=== PATIENT | female | born 1945 | race Caucasian/White ===

== ENCOUNTER 2017-05-02 12:08 | Day surgery (SDC) | payer MEDICARE, BC ==
[~2017-05-02] VITALS: Ht 157.5 cm; Wt 98.4 kg
[2017-05-02] VITALS (8 sets, daily range): BP systolic 121–168; BP diastolic 57–75; PULSE 56–69; RESP 16–18; TEMP 97.5–98.5; O2SAT 95–99
[~2017-05-02 12:08] MED LIST: DEXAMETHASONE SOD PHOS 4 MG/ML VIAL IV ONE; GLYCOPYRROLATE 1 MG/5 ML SYRINGE IV PUSH ONE; LIDOCAINE HCL 1% PF 5 ML SYRINGE OTHER ONE; NEOSTIGMINE 5 MG/5 ML SYRINGE IV PUSH ONE; ONDANSETRON HCL 4 MG/2 ML VIAL IV ONE; PROPOFOL 200 MG/20 ML AMP IV ONE; ROCURONIUM INJ 50 MG/5 ML SYRINGE IV PUSH ONE; ePHEDrine/NS 25 MG/5 ML SYRINGE IV ONE; hydrALAZINE HCL 20 MG/ML VIAL IV ONE
[2017-05-02] MEDS ORDERED: LORazepam 1 MG TAB SL SCH (12:15)
[2017-05-02] MEDS ORDERED: LACTATED RINGER'S 1000 ML IV PRN (12:15)
[2017-05-02] MEDS ORDERED: SODIUM CHLORID 0.9% 500 ML INJ 500 ML IV SCH (12:15)
[2017-05-02] MEDS ORDERED: POVIDONE IODINE 5% (ANTISEPSIS KIT) 4 APPLICATIONS EACH NARE PRN (12:15)
[2017-05-02] MEDS ORDERED: METOPROLOL TARTRATE 25 MG TAB PO PRN (12:15)
[2017-05-02] MEDS ORDERED: SODIUM CHLORID 0.9% 500 ML IV PRN (12:15)
[2017-05-02] MEDS ORDERED: CHLORHEXIDINE GLUCONATE 2 % 1 PACK (2 CLOTHS) TOPICAL PRN (12:15)
[2017-05-02 13:01] LABS: AUTOMATED NEUTROPHIL # 4.7 TH/MM3 (1.8-7.7); BASOPHIL # 0.1 TH/MM3 (0-0.2); BASOPHIL % 0.9 % (0.0-2.0); EOSINOPHIL # 0.2 TH/MM3 (0-0.4); EOSINOPHIL % 2.7 % (0.0-4.0); HEMATOCRIT 43.5 % (35.0-46.0); HEMOGLOBIN 14.7 GM/DL (11.6-15.3); LYMPH % 30.9 % (9.0-44.0); LYMPHOCYTE # 2.5 TH/MM3 (1.0-4.8); MEAN CELL VOLUME 95.7 FL (80.0-100.0); MEAN CORPUSCULAR HEMOGLOBIN 32.3 PG (27.0-34.0); MEAN CORPUSCULAR HGB CONC 33.7 % (32.0-36.0); MEAN PLATELET VOLUME 7.5 FL (7.0-11.0); MONO % 7.9 % (0.0-8.0); MONOCYTE # 0.6 TH/MM3 (0-0.9); NEUT % 57.6 % (16.0-70.0); PLATELET COUNT 239 TH/MM3 (150-450); RED BLOOD COUNT 4.55 MIL/MM3 (4.00-5.30); WHITE BLOOD COUNT 8.2 TH/MM3 (4.0-11.0)
[2017-05-02] MEDS ORDERED: SIMV40TA PO (13:03)
[2017-05-02] MEDS ORDERED: CILO100T PO (13:03)
[2017-05-02] MEDS ORDERED: METO50TA PO (13:03)
[2017-05-02] MEDS ORDERED: CHOL10008 PO (13:03)
[2017-05-02] MEDS ORDERED: ALLO300T2 PO (13:03)
[2017-05-02] MEDS ORDERED: CANA100T PO (13:03)
[2017-05-02] MEDS ORDERED: TERA5CAP3 PO (13:03)
[2017-05-02] MEDS ORDERED: GLYB5TAB3 PO (13:03)
[2017-05-02] MEDS ORDERED: VITA100T65 PO (13:03)
[2017-05-02] MEDS ORDERED: APIX5TAB PO (13:03)
[2017-05-02] MEDS ORDERED: AMLO10TA2 PO (13:03)
[2017-05-02] MEDS ORDERED: SITA1TAB2 PO (13:03)
[2017-05-02] MEDS ORDERED: NEXI40CA PO (13:03)
[2017-05-02] MEDS ORDERED: OMEGCAP PO (13:03)
[2017-05-02] MEDS ORDERED: VITA250T3 PO (13:03)
[2017-05-02 13:11] LABS: PROTHROMBIN TIME - PATIENT 10.2 SEC (9.8-11.6)
[2017-05-02 13:17] LABS: BICARBONATE 22.1 MEQ/L (21.0-32.0); CALCIUM 9.1 MG/DL (8.5-10.1); CREATININE 0.74 MG/DL (0.50-1.00)
[2017-05-02] MEDS ORDERED: HEPARIN-NS/PF INJ 1,000 ML ONE (13:19)
[2017-05-02] MEDS ORDERED: ceFAZolin INJ 1,000 MG VIAL ONE (13:37)
[2017-05-02] MEDS ORDERED: HEPARIN-D5W 25,000 U/250 ML 250 ML ONE (13:38)
[2017-05-02] MEDS ORDERED: ISOPROTERENOL HCL 1 MG/5 ML AMP ONE (13:38)
[2017-05-02] MEDS ORDERED: HEPARIN SODIUM - IV 10,000 UNITS/10 ML VIAL ONE (13:39)
[2017-05-02] MEDS ORDERED: PROTAMINE SULFATE 50 MG/5 ML VIAL ONE (13:39)
[2017-05-02] MEDS ORDERED: ATROPINE SULFATE 1 MG/ML VIAL IV PUSH PRN (16:00)
[2017-05-02] MEDS ORDERED: BACITRACIN OINT 0.9 GM PKT TOP ONE (16:00)
[2017-05-02] MEDS ORDERED: ONDANSETRON HCL 4 MG/2 ML VIAL IV PUSH PRN (16:00)
[2017-05-02] MEDS ORDERED: LORazepam 2 MG/ML VIAL IV PUSH PRN (16:00)
[2017-05-02] MEDS ORDERED: LIDOCAINE HCL 1% 20 ML VIAL INFIL PRN (16:00)
[2017-05-02] MEDS ORDERED: METOCLOPRAMIDE HCL 10 MG/2 ML VIAL IV PUSH PRN (16:00)
[2017-05-02] MEDS ORDERED: oxyCODONE/ACETAMINOPHEN 5 MG/325 MG TAB PO PRN ×2 (16:00)
[2017-05-02] MEDS ORDERED: SODIUM CHLOR 0.9% 250 ML INJ 250 ML IV PRN (16:00)
--- NOTE | 2017-05-02 16:04 | CATHPROC ---
[employer] HIS Report Study Information Study Number Admission Scheduled Start Study Start [id number] May 02 2017 12:08PM 05/02/2017 May 02 2017 1:21PM [facility] Electrophysiology Study Admit Source Facility Department Other [facility] Physician and Clinical Staff Initial Keiko Rodriguez Director [facility] Facundo Shields,RT(R) Director Of [facility] Cait Kim,RT(R) TECH2 Other Anesthesia, CIO Recorder Denise Calvo,KRISTEN Recorder Carla Ledezma,KRISTEN Scrub Margie Becerra,MOTOR INSPECTION MECHANIC TECH2 Procedures Performed Procedure Location (Site) Vessel Name Ablation Procedure ICE CATHETER INSERT RA Atruim RF Ablation LT. ATRIUM LT. ATRIUM Equipment Time Insole Presser Description Size Mfg Part Number Used/Scraped NEEDLE, TRANSSEPTAL NRG 98 [id number] 13:33 [employer] Carmudi Used C1 *[id number] [employer]/ EP [id number] 13:33 KIT, TRANSDUCER / AFIB Used PACER *[id number] CATHETER, TACTICATH ABLAT BUNDLE 13:33 BUNDLE-[employer] DANY Used 65 BUNDLE *[id number]- BUNDLE [id number] CATHETER, FR7 OPTIMA SPIRAL 13:33 BUNDLE-[facility] FR7 *[id number]- Used BUNDLE BUNDLE [id number] 13:33 BUNDLE-[employer] DANY CATHETER, JSN, QUAD BUNDLE FR 5 *[id number]- Used BUNDLE [id number] 13:33 BUNDLE-[employer] DANY CATHETER, JSN, QUAD BUNDLE FR 5 *[id number]- Used BUNDLE [id number] SET, COOL POINT TUBING 13:33 BUNDLE-[employer]. DANY *[id number]- Used BUNDLE BUNDLE SHEATH, FR8.5 STEERABLE SM 13:33 BUNDLE-[employer]. DANY 71CM [id number] Used 71CM BUNDLE COVER, TRANSDUCER CABLE 612-113 13:33 [employer] Used ACUNAV *[id number] 13:33 CORDIS/PACER SHEATH, FR10 CAROLYNN 11CM FR 10 Used *[id number] 13:33 CORDIS/PACER SHEATH, FR9 CAROLYNN 11CM FR 9 [id number] Used [id number] 13:33 [employer] PACK, CCL CUSTOM * Used *[id number] 13:33 MEDLINE PACER FERNANDO, LIMB * 6790 *[id number] Used [id number] 13:33 [place] [facility] SHEATH, FR4.5 PRELUDE 11CM FR 4.5 Used [id number] 13:33 NAMIC TUBING, HIGH PRESSURE 48" 48" Used *[id number] 13:33 NAMIC TUBING, HIGH PRESSURE 48" 48" Used *[id number] 13:33 [place] [employer] BLANKET,WARM AIR CCL * Used *[id number] CZ4489 13:33 [facility] MEDICAL ELECTRODE KIT, RUFINO X SURFACE * Used *[id number] 097800 13:33 [facility] MEDICAL SHEATH, EPS, FR6 FAST CATH FR 6 Used *[id number] 13:33 [facility] MEDICAL SHEATH, EPS, FR7 FAST CATH FR 7 [id number] Used [id number] 13:33 [facility] MEDICAL SHEATH, EPS, FR8 FAST CATH FR 8 Used *[id number] CATHETER, ACUNAV FR10 ICE [id number] 14:35 CRYSTAL FR 10 Used (CRYSTAL) *[id number] [facility] PAD, ELECTROSURGICAL 13:33 * [id number] *[id number] Used SURGICAL GROUNDING (BLUE) History: Allergies Allergy Reaction sulfamethazine trimethoprim lansoprazole levofloxacin celecoxib dexlansoprazole aspirin History: Risk Factors Hypertension Yes Prior PCI Yes Diabetes Yes Labs Hgb (g/dl) Hct (%) RBC (MIL/MM3) WBC (l/cumm) Platelets (thousands) 11.60-17.00 35.00-51.00 4.00-5.90 4.00-11.00 150.00-450.00 14.7 43.5 4.5 8.2 239 Glucose (mg/dl) BUN (mg/dl) Creatinine (mg/dl) BUN:Creatinine (1:x) 74.00-106.00 7.00-18.00 0.50-1.30 10.00-20.00 150 12 0.7 17.1 Na (meq/l) K (meq/l) 136.00-145.00 3.50-5.10 139 5.1 INR (PTT:PT) 0.90-1.10 1 Medication Medication Total Dose (Bolus/Oral) Medication Total Dosage/Unit 1% XYLOCAINE 40 mL HEPARIN 76884 units PROTAMINE 40 mg Medications (Bolus/Oral) Medication Time Given Dosage/Unit Administered By Reason 1% XYLOCAINE 05/02/2017 2:28:00 PM 20 mL Keiko Bass 20 mL 1% XYLOCAINE given in lab by Keiko Bass in Left Groin via Subcutaneous. 1% XYLOCAINE 05/02/2017 2:32:35 PM 20 mL Keiko Bass 20 mL 1% XYLOCAINE given in lab by Keiko Bass in Right Groin via Subcutaneous. HEPARIN 05/02/2017 2:36:57 PM 04749 units Anesthesia, CIO 14905 units HEPARIN given in lab by Anesthesia, CIO via Peripheral IV. Ordered by Keiko Bass. HEPARIN 05/02/2017 3:25:33 PM 2000 units Anesthesia, CIO As per physicians ve rbal order 2000 units HEPARIN given in lab by Anesthesia, CIO via Peripheral IV. Ordered by Keiko Bass. Reas on: As per physicians verbal order. PROTAMINE 05/02/2017 3:48:20 PM 40 mg Chinmay, CIO As per physicians leon bal order 40 mg PROTAMINE given in lab by Anesthesia, CIO via Peripheral IV. Ordered by Keiko Bass. Reason: As per physicians verbal order. Medication (Drip) Medication Time Given Dosage/Unit Concentration/Unit Diluent (ml) Solution ANCEF 05/02/2017 2:05:00 PM 2 g 2 g ANCEF given in lab by Chinmay, CIO via Peripheral IV. Ordered by Keiko Bass. Reason: As pe r physicians verbal order. for ferrera insertion. HEPARIN DRIP 05/02/2017 2:54:54 PM 1000 units/hr 70424 units 250 D5W 1000 units/hr HEPARIN DRIP given in lab by Anesthesia, CIO via Peripheral IV. Pump/Drip Flow = 10 ml /hr [place] [address] units in 250 ml. Ordered by Keiko Bass. Reason: As per physicians verbal order. ISUPREL 05/02/2017 3:31:36 PM 20 mcg/min 1 mg 250 NaCl .9 20 mcg/min ISUPREL given in lab by Anesthesia, CIO via Peripheral IV. Pump/Drip Flow = 300 ml/hr usi ng NaCl .9 with a concentration of 1 mg in 250 ml. Ordered by Keiko Bass. Reason: As per physicians verbal order. Initial Case Assessment Cardiovascular HR Rhythm NIBP Chest Pain 57 sb 193/88 0 Edema Present Skin color Skin Mild Normal Warm Dry Circulatory - Right Pulses Dorsalis Pedis 2 Scale (0,1,2,3,4,d) Circulatory - Left Pulses Dorsalis Pedis 2 Scale (0,1,2,3,4,d) Circulatory - Lower Extremities Color Lower Right Color Lower Left Normal Normal Neurological State Oriented to time-place- Alert Moves all extremities person Respiration - General Respiration Rate SpO2 (%) (B/min) 18 97 Final Case Assessment Cardiovascular HR Rhythm NIBP Chest Pain 72 sr 174/79 0 Edema Present Skin color Skin Mild Normal Warm Dry Circulatory - Right Pulses Dorsalis Pedis 2 Scale (0,1,2,3,4,d) Circulatory - Left Pulses Dorsalis Pedis 2 Scale (0,1,2,3,4,d) Circulatory - Lower Extremities Color Lower Right Color Lower Left Normal Normal Neurological State Lethargic Moves all extremities Respiration - General Respiration Rate SpO2 (%) O2 (lpm) (B/min) 14 96 4 Chronological Log Time Study Chronological Log 13:21:08 Patient arrived via Bed. 13:21:08 Patient Name, D.O.B, / Armband Verified By R.N. 13:21:09 Consent signed by the physician and the patient and verified by the [facility] staff. 13:21:09 Pre-op and post- op instructions given; patient acknowledges understanding of instructions. 13:21:10 Patient has been NPO for More than 6Hrs. 13:21:11 Verbal Stimulation=2 Physical Stimulation=2 Airway=2 Respiration=2 TOTAL=8. (0=absent, 1=li mited, 2=present) 13:22:36 History and physical on the chart. 13:22:56 A # 20 IV was noted in the Forearm (right). Grade = 0 0.9% NaCl @ KVO. 13:24:03 A # 20 IV was noted in the Antecubital (left). Grade = 0 0.9% NaCl @ KVO 13:24:28 Skin Breakdown- none per pt. 13:24:30 Patient Warmer Placed on the Table. 13:24:31 Disposable Defibrillator Pads Placed On Patient. 13:24:32 Billy Prominences Protected 13:28:22 Anesthesia at bedside. Assumes care of patient. Ivan Assessment: Initial Case, HR=57 BPM, Rhythm=sb, SAJT=026/88 mmhg, Chest Pain=0, Edema=Mild, Col or=Normal, Skin = Warm, Dry Right Pulses: Ismael Ped=2 Left Pulses: Ismael Ped=2 13:34:52 Lower Right Extremities: Color=Normal Lower Left Extremities: Color=Normal Neurological: State=Alert, Ox3, PAUL Respiration: Resp=18 B/min, SpO2=97 % 13:35:36 Table restraints applied according to hospital policy 13:43:00 Groins shaved in lab. 13:43:19 Bilateral groins prepped with 2% chlorhexidine, and draped after a 3 minute waiting time. 13:54:41 Anesthesiologist present for intubation. 13:55:15 Pt intubated successfully. 2 g ANCEF given in lab by Anesthesia, CIO via Peripheral IV. Ordered by Keiko Bass. Reason: As per physicians 14:05:00 verbal order. for ferrera insertion. 14:05:15 Reference ECG taken 14:18:10 MD arrived. Time Out. Correct patient, procedure, procedure equipment, site and side verified with physicia n present. Time 14:24:00 concurred by MD, individual staff and CIO. Time Out #2 - Consents verified, patient in correct position, all results are labled and displa yed, safety precautions 14:24:26 taken, antibiotics administered. Time out concurred by MD, individual staff and CIO in procedu re 14:24:42 Case Start 14:24:51 Hector in progress. 14:27:00 Hector complete 14:28:00 20 mL 1% XYLOCAINE given in lab by Keiko Bass in Left Groin via Subcutaneous. 14:29:07 Vascular access was obtained in the Fem Vein (left). 14:29:14 Vascular access was obtained in the Fem Vein (left). 14:29:28 Vascular access was obtained in the Fem Vein (left). 14:29:54 Vascular access was obtained in the Fem Art (left). A SHEATH, FR4.5 PRELUDE 11CM FR 4.5 was advanced into the Fem Art (left) using the Modified Kerry jenelle technique. 14:30:42 0.9ns pressure bag connected. 14:31:00 A SHEATH, EPS, FR6 FAST CATH FR 6 was advanced into the Fem Vein (left) using the Modified Seldinger technique. 14:31:19 A SHEATH, EPS, FR7 FAST CATH FR 7 was advanced into the Fem Vein (left) using the Modified Seldinger technique. 14:31:53 A SHEATH, FR10 CAROLYNN 11CM FR 10 was advanced into the Fem Vein (left) using the Modified S eldinger technique. 14:32:35 20 mL 1% XYLOCAINE given in lab by Keiko Bass in Right Groin via Subcutaneous. 14:32:45 Vascular access was obtained in the Fem Vein (right). 14:32:50 A SHEATH, EPS, FR8 FAST CATH FR 8 was advanced into the Fem Vein (right) using the Modified Seldinger technique. A CATHETER, JSN, QUAD BUNDLE FR 5 was advanced vis Fem Vein (left) and placed in the CS. Placem ent was visually 14:33:52 confirmed under fluoroscopy. A CATHETER, JSN, QUAD BUNDLE FR 5 was advanced vis Fem Vein (left) and placed in the HIS. Place ment was 14:34:31 visually confirmed under fluoroscopy. 14:34:44 CATHETER, ACUNAV FR10 ICE (CRYSTAL) FR 10 Was Postioned. A SHEATH, FR8.5 STEERABLE SM 71CM BUNDLE 71CM was exchanged in the Fem Vein (right). This was n ecessary in 14:35:53 order for catheter support. 14:36:02 Cyrus in 14:36:57 21930 units HEPARIN given in lab by Anesthesia, CIO via Peripheral IV. Ordered by Jorden Bass. 14:38:16 A eps was advanced to the right atrium and passed through the septal wall to the left atriu m. 14:38:26 Cyrus out A CATHETER, FR7 OPTIMA SPIRAL BUNDLE FR7 was advanced vis Fem Vein (right) and placed in the LA . Placement 14:39:00 was visually confirmed under fluoroscopy. Mapping in progress. 14:45:37 Reference ECG taken 14:46:49 Activated Clotting Time Drawn 14:50:50 Mapping complete. Catheter was removed 14:54:15 ACT (Normal Range 90-180) = 351 1000 units/hr HEPARIN DRIP given in lab by Anesthesia, CIO via Peripheral IV. Pump/Drip Flow = 10 ml/hr using 14:54:54 [place] [address] units in 250 ml. Ordered by Keiko Bass. Reason: As per phally sicgilles verbal order. A CATHETER, TACTICATH ABLAT 65 BUNDLE was advanced vis Fem Vein (right) and placed in the LA. P lacement was 14:56:24 visually confirmed under fluoroscopy. 14:56:40 RF Ablation of the LT. ATRIUM with a CATHETER, TACTICATH ABLAT 65 BUNDLE. 15:19:33 Activated Clotting Time Drawn Ablation cath out. 15:22:50 15:23:28 Mapping cath back in. Mapping in progress. 15:25:25 ACT (Normal Range 90-180) = 318 2000 units HEPARIN given in lab by Anesthesia, CIO via Peripheral IV. Ordered by Keiko Bass . Reason: As per 15::33 physicians verbal order. 15:26:38 Mapping complete. Mapping cath out. 15:26:40 RF Ablation of the LT. ATRIUM with a CATHETER, TACTICATH ABLAT 65 BUNDLE. 15:31:07 Ablation complete. Rhythm SB 20 mcg/min ISUPREL given in lab by Anesthesia, CIO via Peripheral IV. Pump/Drip Flow = 300 ml/ hr using NaCl .9 15:31:36 with a concentration of 1 mg in 250 ml. Ordered by Keiko Bass. Reason: As per physicians leon bal order. 15:41:59 Isuprel off. 15:43:21 All Catheter(s) removed without difficulty A SHEATH, FR9 CAROLYNN 11CM FR 9 was exchanged in the Fem Vein (right). This was necessary in ord er to minimize 15:44:01 site leakage. 15:45:03 Ablation procedure performed: AFIB. 15:45:14 EP Procedure was performed. 40 mg PROTAMINE given in lab by Anesthesia, CIO via Peripheral IV. Ordered by Keiko Bass. R john: As per 15:48:20 physicians verbal order. 15:50:33 Sheath(s) left in place, secured, 0.9ns kvo connected and will be removed in Holding Area 16:00:00 Case End 16:01:31 No case complications noted. 16:01:31 Cine recording checked. 16:01:36 Defibrillator and ground pads removed. Skin intact. 16:01:46 PACU called. Spoke to Isaac. 16:01:56 Bedside Report will be given. Assessment: Final Case, HR=72 BPM, Rhythm=sr, BXHC=579/79 mmhg, Chest Pain=0, Edema=Mild, Color =Normal, Skin = Warm, Dry Right Pulses: Ismael Ped=2 Left Pulses: Ismael Ped=2 16:03:11 Lower Right Extremities: Color=Normal Lower Left Extremities: Color=Normal Neurological: State=Lethargic, PAUL Respiration: Resp=14 B/min, SpO2=96 %, O2=4 lpm 16:04:50 Sterile dressing applied to sites 16:05:24 Patient moved to stretcher 16:55:39 ACT (Normal Range 90-180) = 167 End Study - Contrast Media Used In Study Contrast Total Opened (mL) Total Used (mL) Total Wasted (mL) Unspecified 0 0 0 End Study - Maximum Contrast Load Max Contrast Load (mL) 645.8 End Study - Radiation Exposure Fluoro Time (minutes) 1.0 End Study - Patient Disposition Complications Transferred To Interventional Outcome No Telemetry Bed successful
--- NOTE | 2017-05-02 16:08 | PD.CARD ---
Atrial Fibrillation Ablation PROCEDURES PERFORMED: 1. Electrophysiology study on Isuprel infusion 2. CS cannulation 3. 3-D mapping 4. Transseptal approach 5. Right and left heart catheterization 6. Intracardiac echo 7. Radiofrequency ablation of atrial fibrillation 8. Pulmonary vein isolation 9. Posterior wall ablation 10. Mitral line creation 11. Left atrial tachycardia ablation 12. Anterior and posterior ablation INDICATIONS FOR THE PROCEDURE Ms. Rouse is a 71-year-old female with atrial hx of fibrillation, very symptomatic admitted for electrophysiology study and ablation. The patient is symptomatic and on anticoagulation. The risks, the nature and the benefits of the procedure were clearly stated to her. The risks include pneumothorax, cardiac perforation, stroke, need for open heart surgery and even . The patient understood and agreed to proceed. DESCRIPTION OF THE PROCEDURE IN DETAIL As written informed consent was obtained prior to esophageal echocardiogram, the patient was kept on the table where she was prepped and draped in the usual sterile fashion. Conscious sedation was initiated and maintained throughout the procedure by the anesthesiologist. Once sedation was verified, the right and left inguinal areas were anesthetized with 2% Xylocaine. Using modified Seldinger technique, the left femoral vein was cannulated on three occasions, three guidewires were advanced. Over the wire a 6, 7 and a 10-Cameroonian Hemaquet were advanced. Then the left femoral artery was cannulated on one occasion, one guidewire was advanced. Over the wire a 4-Cameroonian Hemaquet was advanced. Then the right femoral vein was cannulated on one occasion, one guidewire was advanced. Over the wire a 8-Cameroonian Hemaquet was advanced. Then under fluoroscopic guidance through the 6 and 7-Cameroonian Hemaquet, two 5-Cameroonian Valerie curved quadripolar electrophysiology catheters were advanced and placed around the His as well as coronary sinus. Basic interval was measured. The patient was in sinus rhythm. Through the 10-Cameroonian Hemaquet, a Cordis Crockett AcuNav intracardiac echo catheter was advanced and placed at the right atrium. Multiple view was obtained. There was no pericardial effusion, pulmonary vein was seen, atrial septal was visualized. Then the 8-Cameroonian Hemaquet in the right femoral vein was exchanged for Agilis transseptal sheath that was placed all the way to the superior vena cava. Through the sheath a Guerda needle was advanced, then the sheath, the dilator and the needle were progressed until foci engaged. Once engaged, the needle was advanced. RF was delivered for 2 seconds. I was able to cross into the left atrium. Once the needle crossed, the dilator was advanced. Once the dilator crossed, the sheath was advanced. Once the sheath crossed, the dilator and the needle were removed. At this point I did flood the system and fluid movement was seen in the left atrium the indicates the sheath is in good position. The patient already received 10,000 units of heparin. The goal is to keep an ACT around 350 during ablation. Then through the sheath a [facility]. [facility] 20 pulse circumferential catheter was advanced. Using [employer] endocardial solution mapping system, a two-dimensional configuration of the left atrium was obtained. Points were taken at the left superior and inferior veins, right superior and inferior veins, mitral valve, and appendages. Then through the sheath a [facility]. Michael TactiCath 65cm 3.5mm irrigated tipped mapping and radiofrequency ablation catheter was advanced. Esophageal probe was placed temperature monitoring during ablation. When it increased to 0.5 degrees Celsius above baseline, I moved to a different area of the atrium. First I did isolate the left superior and inferior vein. I did make a big qagan tayagungin around the veins. Posterior was ablated. A mitral line was created. Then the right superior and inferior veins were isolated. I did remap the atrium. There is no significant signal in the atrium. At that point I did advance the circumferential catheter again into the vein. There was no signal into the vein, pacing from the vein showed no conduction to the atrium. Isuprel infusion was initiated at 20 mcg for over 20 minutes. No tachyarrhythmia was induced, post Isuprel no tachyarrhythmia was induced. At that point the procedure was complete. All catheters were removed, atrial septal sheath was exchanged for 9-Cameroonian Hemaquet, intracardiac echo showed no pericardial effusion. There is still good flow in the pulmonary vein. The patient is going to be transferred to the recovery room. No incident report. The patient tolerated the procedure. Blood loss was minimal. FINDINGS 1. Electrocardiogram: At baseline the patient was in sinus, post procedure electrocardiogram was unchanged. 2. Basic interval: Base cycle length was around 860 milliseconds. AH at 130 and HV at 52 milliseconds. 3. Tachyarrhythmia: Atrial fibrillation was mapped and ablated. The ablation was successful. CONCLUSION Successful electrophysiology study, mapping, radiofrequency ablation of atrial fibrillation, pulmonary vein isolation, posterior ablation, mitral line creation. COMMENTS AND RECOMMENDATIONS The patient is going to be transferred to the telemetry unit. Will be observed and when stable can be discharged home. Keiko Bass MD May 02, 2017 16:08
[2017-05-02] MEDS ORDERED: DO NOT ADM ANY ANTICOAGULANT DRUGS PRN ×2 (16:15)
--- NOTE | 2017-05-02 16:35 | EKG ---
Date Performed: 05/02/2017 Time Performed: 12:53:46 PTAGE: 71 years EKG: Sinus bradycardia. Low QRS voltages in precordial leads Borderline ECG NO PREVIOUS TRACING DOCTOR: Dennis Iniguez Interpretating Date/Time 05/02/2017 16:34:41
[2017-05-02] MEDS ORDERED: PRAVASTATIN SOD 80 MG TAB PO SCH (21:00)
[2017-05-02] MEDS ORDERED: glyBURIDE 5 MG TAB PO SCH (21:00)
[2017-05-02] MEDS ORDERED: CILOSTAZOL 100 MG TAB PO SCH (21:00)
[2017-05-02] MEDS ORDERED: METOPROLOL TARTRATE 50 MG TAB PO SCH (21:00)
[2017-05-02] MEDS ORDERED: APIXABAN 5 MG TABLET PO SCH (21:00)
[2017-05-02] MEDS: TERAZOSIN HCL 5 MG CAP PO SCH ×2 (22:13→22:16)
[2017-05-03] VITALS (8 sets, daily range): BP systolic 119–150; BP diastolic 57–60; PULSE 58–64; RESP 16–18; TEMP 98.1–98.2; O2SAT 96–100
[2017-05-03 07:15] LABS: PROTHROMBIN TIME - PATIENT 10.2 SEC (9.8-11.6)
--- NOTE | 2017-05-03 08:03 | PD.CARD.PN ---
Subjective Subjective Remarks Feels okay. Objective Medications Current Medications Medications (Trade) Dose Ordered Sig/Radha Route Start Time Stop Time Status Last Admin (Percocet 5-325 Mg) 1 tab Q4H PRN PO 05/02/17 16:00 (Percocet 5-325 Mg) 2 tab Q4H PRN PO 05/02/17 16:00 (Ativan Inj) 0.5 mg UNSCH PRN IV PUSH 05/02/17 16:00 05/03/17 15:59 (Atropine Inj) 0.5 mg UNSCH PRN IV PUSH 05/02/17 16:00 Sodium Chloride 250 ml @ 500 mls/hr ONCE PRN IV 05/02/17 16:00 05/03/17 15:59 (Reglan Inj) 10 mg Q4H PRN IV PUSH 05/02/17 16:00 (Zofran Inj) 4 mg Q4H PRN IV PUSH 05/02/17 16:00 (Xylocaine 1% Inj) 10 ml UNSCH PRN INFIL 05/02/17 16:00 05/03/17 15:59 (Zyloprim) 300 mg DAILY PO 05/03/17 09:00 (Norvasc) 10 mg DAILY PO 05/03/17 09:00 (Eliquis) 5 mg BID PO 05/02/17 21:00 (Vitamin D3) 1,000 units DAILY PO 05/03/17 09:00 (Pletal) 100 mg BID PO 05/02/17 21:00 (Diabeta) 5 mg BID PO 05/02/17 21:00 05/02/17 22:13 (Lopressor) 50 mg BID PO 05/02/17 21:00 05/02/17 22:13 (Januvia) 100 mg DAILY PO 05/03/17 09:00 (Hytrin) 5 mg HS PO 05/02/17 21:00 Patient Own Medication PT OWN MED:Canagliflozin (Invokana) 100 MG DAILY PO 05/03/17 09:00 Future Hold (Protonix) 40 mg DAILY PO 05/03/17 09:00 (Pravachol) 80 mg HS PO 05/02/17 21:00 05/02/17 22:13 (Vitamin E) 400 units DAILY PO 05/03/17 09:00 Sodium Chloride 500 ml @ 30 mls/hr [id number] IV 05/02/17 12:15 (Ativan) 1 mg MOP MAN SL 05/02/17 12:15 05/05/17 12:14 (Betadine 5% Antisepsis Kit) 1 applic MOP MAN PRN EACH NARE 05/02/17 12:15 05/05/17 12:14 Miscellaneous Information ALL NURSING DEPARTME... UNSCH PRN .XX 05/02/17 16:15 05/03/17 16:14 Miscellaneous Information ALL NURSING DEPARTME... UNSCH PRN .XX 05/02/17 16:15 05/03/17 16:14 Vital Signs / I&O Vital Signs Date Time Temp Pulse Resp B/P (MAP) Pulse Ox O2 Delivery O2 Flow Rate FiO2 05/03/17 04:00 60 05/03/17 03:00 64 05/03/17 03:00 98.2 60 16 119/60 (79) 100 05/03/17 02:00 60 05/03/17 01:00 60 05/03/17 00:00 64 05/02/17 23:00 97.5 61 16 121/57 (78) 99 05/02/17 23:00 65 05/02/17 22:29 96 Nasal Cannula 2.00 05/02/17 22:00 64 05/02/17 21:00 66 05/02/17 20:00 68 05/02/17 19:00 97.7 62 16 134/65 (88) 97 05/02/17 19:00 69 05/02/17 17:40 98.5 65 18 136/62 (86) 95 05/02/17 17:25 97.8 66 17 128/60 (82) 95 Nasal Cannula 2 05/02/17 17:00 62 17 120/54 (76) 95 Nasal Cannula 2 05/02/17 16:45 63 17 130/61 (84) 95 Nasal Cannula 2 05/02/17 16:30 65 17 137/62 (87) 65 Nasal Cannula 2 05/02/17 16:14 97.8 68 17 143/65 (91) 94 Nasal Cannula 2 05/02/17 12:58 98.0 56 16 168/75 (106) 96 I/O 05/02/17 05/02/17 05/02/17 05/03/17 05/03/17 05/03/17 07:00 15:00 23:00 07:00 15:00 23:00 Intake Total 1000 ml 740 ml Output Total 200 ml 750 ml Balance 800 ml -10 ml Intake Oral 740 ml Other 1000 ml Output Urine Total 200 ml 750 ml Physical Exam GENERAL: Well-nourished, well-developed patient. SKIN: Warm and dry. Groin site soft, left groin site with bruising status post hematoma last evening. HEAD: Normocephalic. EYES: No scleral icterus. No injection or drainage. NECK: Supple, trachea midline. No JVD or lymphadenopathy. CARDIOVASCULAR: Regular rate and rhythm without murmurs, gallops, or rubs. RESPIRATORY: Breath sounds equal bilaterally. No accessory muscle use. GASTROINTESTINAL: Abdomen soft, non-tender, nondistended. EXTREMITIES: No cyanosis, or edema. NEUROLOGICAL: Awake, alert, and oriented x 3. Non-focal. Laboratory Laboratory Tests Test 05/02/17 12:35 05/03/17 06:40 White Blood Count 8.2 TH/MM3 Red Blood Count 4.55 MIL/MM3 Hemoglobin 14.7 GM/DL Hematocrit 43.5 % Mean Corpuscular Volume 95.7 FL Mean Corpuscular Hemoglobin 32.3 PG Mean Corpuscular Hemoglobin Concent 33.7 % Red Cell Distribution Width 14.0 % Platelet Count 239 TH/MM3 Mean Platelet Volume 7.5 FL Neutrophils (%) (Auto) 57.6 % Lymphocytes (%) (Auto) 30.9 % Monocytes (%) (Auto) 7.9 % Eosinophils (%) (Auto) 2.7 % Basophils (%) (Auto) 0.9 % Neutrophils # (Auto) 4.7 TH/MM3 Lymphocytes # (Auto) 2.5 TH/MM3 Monocytes # (Auto) 0.6 TH/MM3 Eosinophils # (Auto) 0.2 TH/MM3 Basophils # (Auto) 0.1 TH/MM3 CBC Comment DIFF FINAL Differential Comment Prothrombin Time 10.2 SEC 10.2 SEC Prothromb Time International Ratio 1.0 RATIO 1.0 RATIO Activated Partial Thromboplast Time 26.6 SEC 23.8 SEC Blood Urea Nitrogen 12 MG/DL Creatinine 0.74 MG/DL Random Glucose 150 MG/DL Calcium Level 9.1 MG/DL Sodium Level 139 MEQ/L Potassium Level 5.1 MEQ/L Chloride Level 110 MEQ/L Carbon Dioxide Level 22.1 MEQ/L Anion Gap 7 MEQ/L Estimat Glomerular Filtration Rate 77 ML/MIN Assessment and Plan Problem List: (1) Atrial fibrillation ICD Codes: I48.91 - Unspecified atrial fibrillation Plan: Sinus rhythm on telemetry status post A. fib ablation. (2) S/P ablation of atrial fibrillation ICD Codes: Z98.890 - Other specified postprocedural states; Z86.79 - Personal history of other diseases of the circulatory system Plan: Groin sites soft, status post hematoma overnight. Continue eliquis, discharge home, follow-up with Dr. hansen in 3 weeks per my discussion with him. Problem Qualifiers (1) Atrial fibrillation: Qualified Codes: I48.0 - Paroxysmal atrial fibrillation Sharla Tamez May 03, 2017 08:03
[2017-05-03] MEDS ORDERED: VITAMIN E 400 UNIT CAP PO SCH (09:00)
[2017-05-03] MEDS ORDERED: CANAGLIFLOZIN 100 MG PO SCH (09:00)
[2017-05-03] MEDS ORDERED: NON-FORMULARY DRUG (Fish Oil-Cholecalciferol (Omega-3 Fish Oil/Vitamin) 1 CAP) PO SCH (09:00)
[2017-05-03] MEDS ORDERED: PANTOPRAZOLE SOD 40 MG DELAYED RELEASE TAB PO SCH (09:00)
[2017-05-03] MEDS ORDERED: ALLOPURINOL 300 MG TAB PO SCH (09:00)
[2017-05-03] MEDS ORDERED: CHOLECALCIFEROL (VIT D3) 1000 UNIT TAB PO SCH (09:00)
--- NOTE | 2017-05-03 21:22 | EKG ---
Date Performed: 05/03/2017 Time Performed: 02:01:22 PTAGE: 71 years EKG: Sinus rhythm with bigeminal PACs Possible anteroseptal infarct - age undetermined Abnormal ECG PREVIOUS TRACING : 05/02/2017 16.44 Compared to prior tracing no significant change DOCTOR: Dennis Iniguez Interpretating Date/Time 05/03/2017 21:21:08
--- NOTE | 2017-05-03 22:01 | EKG ---
Date Performed: 05/02/2017 Time Performed: 16:44:02 PTAGE: 71 years EKG: Sinus rhythm WITH FIRST DEGREE AV BLOCK ABNORMAL ECG PREVIOUS TRACING : 05/02/2017 12.53 Compared to prior tracing no significant change DOCTOR: Dennis Iniguez Interpretating Date/Time 05/03/2017 22:00:46
== END 2017-05-03 10:30 | disposition home or self-care (01) ==
LOC: HDOC 12:08 → HDIC 12:09 → HCIS 17:40 → HDOC 05-03 10:30
PROVIDERS: ATTEND Internal Medicine Interventional Cardiology
DX: I48.0 Paroxysmal atrial fibrillation (principal); I11.9 Hypertensive heart disease without heart failure; I25.10 Atherosclerotic heart disease of native coronary artery without angina pectoris; E11.9 Type 2 diabetes mellitus without complications; Z79.01 Long term (current) use of anticoagulants; Z79.84 Long term (current) use of oral hypoglycemic drugs
CPT/HCPCS: 00537; 80048; 85002; 85025; 85610; 85730; 86850; 86900; 86901; 93005; 93312; 93320; 93325; 93613; 93623; 93656; 93662; C1730; C1731; C1732; C1759; C1766; C2630; J0690; J1644; J2720; J3010; J0360; J1100; J2405; J2710